=== PATIENT | male | born 2000 | race Caucasian/White ===

== ENCOUNTER 2021-05-10 18:54 | Emergency (ER) | payer OTHER, SELFPAY ==
--- NOTE | ~2021-05-10 | XR_ITS ---
EXAM: XR ankle LT min 3V HISTORY: left lateral ankle pain s/p injury 2 days ago COMPARISON: None available FINDINGS: Normal mineralization. No fracture or dislocation. Joint spaces are maintained. Normal sof t tissues. IMPRESSION: No acute osseous abnormality detected in the left ankle. Reviewed, dictated and finalized at location K.
--- NOTE | 2021-05-10 18:55 | ED.LOWEXIN ---
HPI - Extremity Injury (Lower) General Chief Complaint: Extremity Injury, Lower Stated Complaint: Left ankle Pain Time Seen by Provider: 05/10/21 18:55 Source: patient, RN notes reviewed and old records reviewed Mode of arrival: ambulatory Limitations: no limitations History of Present Illness HPI Narrative: 20-year-old male presents to the [facility] with left lateral ankle and foot pain, swelling, redness, abrasion. States that he dropped his scooter on his ankle and foot Monday. Has been putting herbal stuff on it and washing it with 90% alcohol Large abrasion with increased warmth, swelling noted MD complaint: ankle injury (left) Related Data Allergies Allergy/AdvReac Type Severity Reaction Status Date / Time codeine Allergy Vomiting Verified 05/10/21 19:34 Review of Systems Review of Systems: All systems reviewed & are unremarkable except as noted in HPI and below Constitutional: Constitutional: Reports no additional constitutional complaints, Denies chills and Denies fever(s) Eyes: Eyes: Reports no additional eye complaints ENT: Reports system reviewed and no additional complaints, except as documented Cardiovascular: Cardiovascular: Reports no additional cardiovascular complaints Respiratory: Respiratory: Reports no additional respiratory complaints, Denies cough and Denies dyspnea Gastrointestinal: Gastrointestinal: Reports no additional gastrointestinal complaints and Denies abdominal pain Musculoskeletal: Musculoskeletal: Reports as per HPI, Reports arthralgias (Lateral left ankle and foot) and Reports joint swelling Integumentary/Breasts: Skin/Breast: Reports as per HPI Comments: Large abrasion noted to the left lateral ankle and foot Neurologic: Reports system reviewed and no additional complaints, except as documented Psychiatric: Psychiatric: Reports no additional psychiatric complaints Allergic/Immunologic: Allergic/Immunologic: Reports no additional allergic/immunologic complaints [facility] [place] Past Medical History Medical History (Updated 05/10/21 @ 19:57 by Ania Santana APRN) Patient denies medical problems Surgical History Surgical History (Updated 05/10/21 @ 19:53 by Ania Santana APRN) No pertinent past surgical history Social History Social History (Updated 05/10/21 @ 19:53 by Ania Santana APRN) Living arrangements: with family Gender identity (if verbalized by the patient): Male Comments At the time of my signature, I reviewed and agree with the nursing past medical, surgical, social, and family history. There is no relevant family history pertinent to the patient complaint. Exam Const: General: healthy appearing, no acute distress and alert Nutritional Appearance: well nourished Orientation/consciousness: patient oriented x3 Limitations: no limitations HENMT: Head: normal to inspection Ears: external ears normal Eyes: Pupils: Equal, round and reactive pupils present Neck: Neck: normal visual inspection, no lymphadenopathy and no meningeal signs Chest: Chest palpation & inspection: normal inspection of the chest Resp: Effort & Inspection: normal respiratory effort Auscultation: clear to auscultation bilaterally Cardio: Rate: regular rate Rhythm: regular rhythm Skin: General skin exam: normal color Rashes: no rashes Neuro: General: patient oriented x3, moves all extremities, no meningeal signs and no focal motor deficits Cranial nerves: Yes Equal, round and reactive pupils present Speech: normal speech Gait exam (Neuro): Normal gait present Extrem: Ankle/foot/toe images: 1. 4 x 2 cm abrasion, scabbed over, surrounding erythema, increased warmth. Positive pedal pulse. Sensation intact in all 5 toes lateral medial foot. Full range of motion of the toes. Capillary refill under 2 seconds Psych: Appearance: grossly normal and well kempt Mental Status: mental status grossly normal Affect: normal affect Attitude: cooperative Thought content: Yes Norm
[2021-05-10 19:06] VITALS: BP 124/73; PULSE 68; RESP 16; TEMP 36.8; O2SAT 100
== END 2021-05-10 19:55 | disposition home or self-care (01) ==
PROVIDERS: Emergency Provider Nurse Practitioner
DX: S90.512A Abrasion, left ankle, initial encounter (principal); L08.9 Local infection of the skin and subcutaneous tissue, unspecified; X58.XXXA Exposure to other specified factors, initial encounter
CPT/HCPCS: 73610; 99213; G0463